=== PATIENT | female | born 2000 | race Caucasian/White ===

== ENCOUNTER 2024-04-14 10:03 | Outpatient (CLI) | payer OTHER, SELFPAY ==
[2024-04-14 10:30] VITALS: BP 118/71; PULSE 64
[2024-04-14 10:35] VITALS: TEMP 36.9; O2SAT 99
[2024-04-14 10:57] VITALS: BMI 25.7
--- NOTE | 2024-04-15 09:25 | OB.TRI.NOTE ---
HPI - General HPI Narrative MARCELO MUNIZ, is a 24 F who presents 34 weeks 5 days for irregular contractions. EDEL 05/22/24 Maternal Data Information EDEL Calculator Estimated Delivery Date Method Current WG Current Estimate 05/22/24 Manual 34w 5d NST FHR Rate Baby A Baseline: 115 Variability:: Moderate Accelerations:: 15 x 15 Decelerations:: None NST Reactive:: Yes Uterine Activity:: Irregular Assessment & Plan (1) Irregular contractions: (2) 34 weeks gestation of : PLAN: Plan 1) No active labor 2) D/C home
== END 2024-04-14 12:00 | disposition home or self-care (01) ==
LOC: WPOUT 10:16 → WP 10:17
PROVIDERS: Referring Provider Advanced Practice Midwife; Visit Provider Advanced Practice Midwife
DX: O47.03 False labor before 37 completed weeks of gestation, third trimester (principal); Z3A.34 34 weeks gestation of pregnancy
CPT/HCPCS: 59050; 99221; G0378

== ENCOUNTER 2024-05-03 18:03 | Outpatient (CLI) | payer OTHER, SELFPAY ==
[2024-05-03 18:14] VITALS: BP 125/76; PULSE 93; O2SAT 98; BMI 28.0
[2024-05-03 18:16] VITALS: RESP 16; TEMP 36.7
[2024-05-03 18:57] LABS: ROM Internal Control Test YES-OK TO RESULT pt. (Internal QC); ROM Patient Test Negative (Negative)
[2024-05-03 18:58] LABS: Record Kit Lot#, ROM+ K1866
--- NOTE | 2024-05-05 07:15 | OB.TRI.NOTE ---
HPI - General General Date of Service: 05/03/24 HPI Narrative MARCELO MUNIZ, is a 24 F @ 37 + weeks who presents c/o Contractions , R/O labor Maternal Data Information EDEL Calculator Estimated Delivery Date Method Current WG Current Estimate 05/22/24 Manual 37w 4d PFSH PFSH Home Medications ?Medication ?Instructions ?Recorded ?Last Taken ?Type ferrous sulfate 325 mg (65 mg 325 mg PO QODAY 05/03/24 05/02/24 22:00 History iron) tablet (FeroSul) 325 mg vits no.130-ferrous fum tab 05/03/24 05/02/24 22:00 History 27 mg iron-folic acid 800 mcg 1 TAB tablet ( Vitamin) Allergy/AdvReac Type Severity Reaction Status Date / Time nalbuphine (From Nubain) Allergy Severe paralysis Verified 05/03/24 18:16 pollen extracts Allergy Severe Other Verified 05/03/24 18:16 Physical Exam Narrative 50/-3 per nursing NST FHR Rate Baby A Baseline: 135 Variability:: Moderate Accelerations:: 15 x 15 Decelerations:: None NST Reactive:: Yes FHR Category:: Category I Uterine Activity:: occasional Assessment & Plan (1) 37 weeks gestation of : (2) False labor: PLAN: Plan 24yo @ 37 weeks gestation - false labor 1) Reassuring status- [place]
== END 2024-05-03 19:20 | disposition home or self-care (01) ==
LOC: WPOUT 18:08 → WP 18:09
PROVIDERS: Visit Provider Obstetrics & Gynecology
DX: O47.1 False labor at or after 37 completed weeks of gestation (principal); Z3A.37 37 weeks gestation of pregnancy
CPT/HCPCS: 59025; 59050; 84112; 99221; G0378

== ENCOUNTER 2024-05-23 08:02 | Inpatient (IN) | payer MEDICAID, SELFPAY ==
[2024-05-23] VITALS (18 sets, daily range): BP systolic 95–139; BP diastolic 45–111; PULSE 50–190; RESP 15–18; TEMP 36.4–36.9; O2SAT 96–99; BMI 29.9
[2024-05-23] MEDS: Oxytocin 10 UNITS/ML Vial IM (08:08)
--- NOTE | 2024-05-23 08:24 | PCM.HP.OB ---
HPI - General General Date of Admission: 05/23/24 HPI Narrative MARCELO MUNIZ, is a 24 F @ 40+ weeks who presents c/o contractions and SROM- upon arrival head noted at perineum. Pt reports Ctx started at 6am and SROM occured on way to hospital. pt reports no complications with . Maternal Data Information EDEL Calculator Estimated Delivery Date Method Current WG Current Estimate 05/22/24 Manual 40w 1d PFSH PFSH Home Medications ?Medication ?Instructions ?Recorded ?Last Taken ?Type ferrous sulfate 325 mg (65 mg 325 mg PO QODAY 05/03/24 05/02/24 22:00 History iron) tablet (FeroSul) 325 mg vits no.130-ferrous fum tab 05/03/24 05/02/24 22:00 History 27 mg iron-folic acid 800 mcg 1 TAB tablet ( Vitamin) Allergy/AdvReac Type Severity Reaction Status Date / Time nalbuphine (From Nubain) Allergy Severe paralysis Verified 05/03/24 18:16 pollen extracts Allergy Severe Other Verified 05/03/24 18:16 Vital Signs Vital Signs Vital Signs: 05/23/24 08:06 05/23/24 08:06 05/23/24 08:20 Pulse Rate 105 H Blood Pressure 139/111 H 135/66 H BP Systolic 139 135 BP Diastolic 111 66 05/23/24 08:20 Pulse Rate 80 Blood Pressure BP Systolic BP Diastolic Labs Labs Labs: No Data to Display Assessment & Plan (1) 40 weeks gestation of : (2) Active labor at term: (3) Precipitous delivery: PLAN: Plan Admit to L&D Monitor VS Anticipate Will plan for IM pitocin Precitious delivery
--- NOTE | 2024-05-23 08:25 | EX.PCM.OBRPT ---
Maternal Data Information EDEL Calculator Estimated Delivery Date Method Current WG Current Estimate 05/22/24 Manual 40w 1d Vaginal Delivery Maternal Presentation Maternal Presentation: Active Labor Operative Information Date of Procedure: 05/23/24 Pre-Operative Diagnosis: 40 weeks, Active labor Post-Operative Diagnosis: same, precipitous delivery, live male Surgery / Procedure Performed: Spontaneous Vaginal Delivery Estimated Blood Loss: 50 Time of Delivery: 08:03 Findings Description of Procedure: Patient presented to the hospital in active labor by the time we moved her to a patient bed head was at the perineum. Patient delivered without complication. The 's head was delivered followed by the anterior shoulder and the rest the infant's body. The infant was then placed on the mother's chest for immediate skin to skin. The infant was vigorous at time of delivery. After delayed cord clamping the cord was then clamped and cut. IM Pitocin was given the placenta was delivered intact. The perineum and vagina were evaluated and noted to be intact. Fundus was firm. Presentation: Vertex Amniotic Membrane Rupture Type: Spontaneous Amniotic Fluid Description: Clear Placental Delivery Description: Expressed Placenta Disposition: [facility] Specimen(s) Removed: placenta Cord Vessel Description: 3 Vessels Cord Entanglement: None Nuchal Cord Compression: Without compression Infant A Gender: Male (1 minute): 8 (5 minute): 9 Delayed Cord Clamping: Yes Post Vaginal Delivery Medications Given After Delivery: IM Pitocin Episiotomy Description: None Laceration: None Complication Complications: None
[2024-05-23 09:17] LABS: Basophil# 0.07 X10^3/uL; Basophil% 0.4 % (0-1); Eosinophil# 0.01 X10^3/uL; Eosinophils% 0.1 % (0-5); Hematocrit 32.9 % (37-47); Hemoglobin 10.2 g/dL (12.0-15.0); Lymphocyte % 7.6 % (19-41); Mean Corpuscular Hgb 24.2 pg (27.0-32.0); Mean Platelet Vol. 9.2 fl (6.2-12.0); Monocyte# 0.88 X10^3/uL; Monocyte% 4.5 % (0-10); NRBC Flagged by Analyzer 0 % (0-5); Neutrophil # 17.03 X10^3/uL (2.7-7.7); Neutrophil % 86.3 % (47-70); Platelet Count 379 K/mm3 (150-450); RBC Distribution Width CV 16.3 % (11.6-14.6); RBC Distribution Width SD 45.8 fl (35.1-43.9); Red Blood Count 4.22 M/mm3 (4.2-5.4); White Blood Count 19.7 K/mm3 (4.4-11.0)
[2024-05-23 09:57] LABS: Syphilis Antibodies Non-reactive
[2024-05-23] MEDS: Acetaminophen 500 MG Tablet PO ×2 (10:46→20:18)
--- NOTE | 2024-05-23 16:21 | CASEMGMT ---
Labor and Delivery Social Work Sw completed chart review and spoke to bedside RN who reports that mother of baby (UBALDO Solano) has history of anxiety and depression. Sw presented to bedside, introduced self and explained role during hospitalization. Also present was paternal grandma. MOB stated it was okay to complete assessment with her present. Sw completed psychosocial assessment. Sw assessed for any immediate needs or concerns. Sw provided MOB with literature to review regarding signs and symptoms of baby blues and mood and anxiety disorders. Sw also provided MOB with list of [facility] resources that are accessible to her should she need linkage to mental health services and supports. Sw educated MOB on shaken baby prevention, ABCs of safe sleep and Help Me Grow. No immediate needs or concerns at this time. MOB talkative, pleasant and engaged throughout completion of assessment. Formal assessment to be entered at later date. Okay for MOB and baby to be discharged when medically ready. Yolanda Diamond, [employer] H[employer] OPEN STACK ADMINISTRATOR, ANTIQUE FURNITURE REPAIRER
[2024-05-24 04:26] VITALS: BP 120/68; PULSE 65; RESP 15; O2SAT 97
[2024-05-24 08:09] VITALS: BP 118/70; PULSE 78; RESP 16; TEMP 36.7; O2SAT 99
--- NOTE | 2024-05-24 08:41 | PCM.DC.SUM ---
Providers Date of Admission: 05/23/24 Primary Care Physician: No Primary Care Phys Reason For Visit: VAGINAL DELIVERY Diagnosis Discharge Diagnosis (1) Precipitous delivery: Status: Acute Code(s): O62.3 - Precipitate labor Medications at Discharge Home Medications ferrous sulfate 325 mg (65 mg iron) tablet (FeroSul) 325 mg PO QODAY anemia 05/03/24 vits no.130-ferrous fum 27 mg iron-folic acid 800 mcg tablet ( Vitamin) 1 tab PO DAILY 05/03/24 Hospital Course Operations None Procedures None Summary of Care Provided Minutes Spent on Discharge: 10 Hospital Course: Patient had . Hospital course was uneventful. Physical Exam Narrative Patient seen at bedside. Denies pain. Ambulating and voiding without difficulty. Lochia decreased. Desires discharge home today. Const alert and no apparent distress General Appearance: cooperative and comfortable Exam Limitations: no limitations HEENT normocephalic Eyes General Eye: normal appearance of both eyes Neck full ROM General: normal visual inspection Chest Chest: symmetrical chest wall rise Resp normal respiratory effort and normal air movement Effort and Inspection: symmetric chest movement Auscultation: clear to auscultation bilaterally Cardio regular rate and regular rhythm GI normal to inspection, nondistended, normoactive bowel sounds Back/Spine normal ROM Extremity full ROM and no calf tenderness General Extremity: normal exam except as noted Skin no rashes or lesions noted Neuro CN's II-XII intact bilaterally Psych mental status grossly normal Weight / BMI Weight Weight: 164 lb Body Mass Index (BMI) 29.9 ABG / Lab / Microbiology Data 05/23/24 09:03 Laboratory: Laboratory Results - last 24 hr 05/23/24 09:03: WBC 19.7 H, RBC 4.22, Hgb 10.2 L, Hct 32.9 L, MCV 78.0 L, MCH 24.2 L, MCHC 31.0 L, RDW Std Deviation 45.8 H, RDW Coeff of Kirill 16.3 H, Plt Count 379, MPV 9.2, Immature Gran % (Auto) 1.100 H, Neut % (Auto) 86.3 H, Lymph % (Auto) 7.6 L, [place] % (Auto) 4.5, Eos % (Auto) 0.1, Baso % (Auto) 0.4, Absolute Neuts (auto) 17.0 H, Absolute Lymphs (auto) 1.50, Nucleated RBC % 0, Syphilis Total Ab Non-reactive, Blood Type O POSITIVE, Antibody Screen NEGATIVE D/C Instructions Discharge Diet: No restrictions May resume sexual activity in: 6-8 weeks Weight Bearing Status: Weight bearing as tolerated Call your doctor if you observe: Fever of 101 or Higher, Inability to urinate, Using more than 1 pad per hour, Shortness of breath, Chest pain, Calf discomfort and Uncontrolled pain When: 2 weeks virtual visit/ 6 weeks in office Meaningful Use Info Meaningful Use Meaningful Use Diagnoses (Choose all that apply): None applicable Ischemic Stroke Statin Dosing Therapy Reference: STATIN DOSE THERAPY REFERENCE: * Patients > 75 years receive moderate or high dose statin therapy. * Patients 75 years or YOUNGER should receive HIGH intensity statin dose unless contraindicated. You will be required to document reason for non-treatment if statin daily dose does not meet guidelines. HIGH DOSE STATIN THERAPY DAILY Atorvastatin > than or = to 40 mg Rosuvastatin > than or = to 20 mg Amlodipine + Atorvastatin > than or = to 2.5/40 mg Ezetimibe + Simvastatin 10/80 mg Simvastatin 80mg Discharge Plan Admission Admit Date/Time: 05/23/24 08:02 Attending Provider: Shelly Campoverde Primary Care Provider: Care Physician,No Primary Discharge Orders/Prescriptions Prescriptions: No Action Vitamin 27 mg iron- 800 mcg tablet 1 tab PO DAILY ferrous sulfate [FeroSul] 325 mg (65 mg iron) tablet 325 mg PO QODAY Referrals / Follow Up: Care Physician,No Primary [Primary Care Provider] - Disposition Disposition (needs filled in before D/C Order can be placed): Home, Self Care
== END 2024-05-24 14:15 | disposition home or self-care (01) | DRG 807 ==
PROVIDERS: Admitting Provider Obstetrics & Gynecology; Referring Provider Obstetrics & Gynecology; Visit Provider Obstetrics & Gynecology
DX: O42.02 Full-term premature rupture of membranes, onset of labor within 24 hours of rupture (principal); Z37.0 Single live birth; O62.3 Precipitate labor; Z3A.40 40 weeks gestation of pregnancy
CPT/HCPCS: 85025; 86780; 86850; 86900; 86901; 99221; G0378